=== PATIENT | male | born 1980 | race Caucasian/White ===

== ENCOUNTER 2020-04-04 18:52 | Inpatient (IN) | payer SELFPAY ==
[~2020-04-04] VITALS: Ht 175.3 cm; Wt 127.3 kg
[2020-04-04] MEDS: IV NORMAL SALINE 1000ML BAG 1,000 ML IV SCH ×3 (20:11→22:40)
[2020-04-04] MEDS ORDERED: VANCOMYCIN PER PHARMACY MC ONE (20:15)
[2020-04-04] MEDS ORDERED: MORPHINE SULFATE 2 MG/ML VIAL. IV/SQ PRN (20:15)
[2020-04-04] MEDS ORDERED: ACETAMINOPHEN 500 MG TABLET PO ONE (20:15)
[2020-04-04 20:28] LABS: BASO # 0.1 x10^3/uL (0.0-0.2); BASO % 1 % (0-3); EOS # 0.1 x10^3/uL (0.0-0.7); EOS % 1 % (0-3); HEMATOCRIT 39.6 % (39.0-53.0); HEMOGLOBIN 13.6 g/dL (13.0-17.5); LYMPH # 2.1 x10^3/uL (1.0-4.8); LYMPH % 13 % (24-48); MEAN CORPUSCULAR HEMOGLOBIN 31 pg (25-35); MEAN CORPUSCULAR HGB CONC 34 g/dL (31-37); MEAN CORPUSCULAR VOLUME 89 fL (79-100); MONO % 6 % (0-9); NEUT # 13.4 x10^3/uL (1.8-7.7); NEUT % 80 % (31-73); PLATELET COUNT 217 x10^3/uL (140-400); RED BLOOD COUNT 4.45 x10^6/uL (4.30-5.70); RED CELL DISTRIBUTION WIDTH 13.6 % (11.5-14.5); WHITE BLOOD COUNT 16.7 x10^3/uL (4.0-11.0)
[2020-04-04 20:38] LABS: CALCIUM 9.2 mg/dL (8.5-10.1); GFR 82.3; POTASSIUM 3.3 mmol/L (3.5-5.1); PROTHROMBIN TIME PATIENT 13.6 SEC (11.7-14.0)
[2020-04-04 20:44] LABS: ALBUMIN 3.5 g/dL (3.4-5.0); ALBUMIN/GLOBULIN RATIO 0.9 (1.0-1.7); TOTAL BILIRUBIN 0.3 mg/dL (0.2-1.0); TOTAL PROTEIN 7.5 g/dL (6.4-8.2)
[2020-04-04 20:55] VITALS: BP 131/88
[2020-04-04] MEDS ORDERED: PIPERACILLIN/TAZOBACTAM 4.5 GM in IV NORMAL SALINE 100ML 100 ML IV ONE (21:00)
[2020-04-04] MEDS ORDERED: VANCOMYCIN 2 GM in IV NORMAL SALINE 500ML BAG 500 ML IV ONE (21:00)
[2020-04-04 21:12] LABS: % BANDS 2 % (0-9); % LYMPHS 14 % (24-48); % MONOS 5 % (0-10); % SEGS 79 % (35-66); PLT ESTIMATE ADEQUATE (ADEQUATE)
--- NOTE | 2020-04-04 21:20 | PHYS DOC ---
Past Medical History Past Medical History: Diabetes-Type II, GERD Additional Past Medical Histor: PRE HTN Past Surgical History: Other Additional Past Surgical Histo: L KNEE Smoking Status: Current Every Day Smoker Alcohol Use: Rarely General Adult EDM: Chief Complaint: ABSCESS HPI: HPI: Patient is a 39 year old male with history of diabetes type 2, acid reflux, who presents to the ED today with an axilla abscess that began 3 days ago. Patient denies any fever, denies any drainage from the area. Review of Systems: Review of Systems: Constitutional: Denies fever or chills. [] Eyes: Denies change in visual acuity. [] HENT: Denies nasal congestion or sore throat. [] Respiratory: Denies cough or shortness of breath. [] Cardiovascular: Denies chest pain or edema. [] GI: Denies abdominal pain, nausea, vomiting, bloody stools or diarrhea. [] : Denies dysuria. [] Musculoskeletal: Denies back pain or joint pain. [] Integument: Reports right axilla abscess Neurologic: Denies headache, focal weakness or sensory changes. [] Psychiatric: Denies depression or anxiety. [] Heart Score: Risk Factors: Risk Factors: DM, Current or recent (<one month) smoker, HTN, HLP, family history of CAD, obesity. Risk Scores: Score 0 - 3: 2.5% MACE over next 6 weeks - Discharge Home Score 4 - 6: 20.3% MACE over next 6 weeks - Admit for Clinical Observation Score 7 - 10: 72.7% MACE over next 6 weeks - Early Invasive Strategies Current Medications: Current Medications Medications (Trade) Dose Ordered Sig/[facility] Start Time Stop Time Status Last Admin Dose Admin Acetaminophen (Tylenol) 1,000 mg 1X ONCE 04/04/20 20:15 04/04/20 20:20 DC 04/04/20 20:38 1,000 MG Morphine Sulfate (Morphine Sulfate) 2 mg PRN Q15MIN PRN 04/04/20 20:15 04/05/20 20:14 04/04/20 20:40 2 MG Piperacillin Sod/ Tazobactam Sod 4.5 gm/Sodium Chloride 100 ml @ 200 mls/hr 1X ONCE 04/04/20 21:00 04/04/20 21:29 04/04/20 20:46 200 MLS/HR Sodium Chloride 1,000 ml @ 2,130 mls/hr Q29M 04/04/20 20:11 04/04/20 21:11 DC Vancomycin HCl (Vanco Per Pharmacy) 1 each 1X ONCE 04/04/20 20:15 04/04/20 20:16 UNV Vancomycin HCl 2 gm/Sodium Chloride 500 ml @ 250 mls/hr 1X ONCE 04/04/20 21:00 04/04/20 22:59 04/04/20 20:47 250 MLS/HR Allergies: Allergies: Allergies Coded Allergies Type Severity Reaction Last Updated Verified erythromycin base Allergy Unknown Nausea 04/04/20 Yes Physical Exam: PE: Constitutional: Well developed, well nourished, no acute distress, non-toxic appearance. [] HENT: Normocephalic, atraumatic, bilateral external ears normal, oropharynx moist, no oral exudates, nose normal. [] Eyes: PERRLA, EOMI, conjunctiva normal, no discharge. [] Neck: Normal range of motion, no tenderness, supple, no stridor. [] Cardiovascular:Heart rate regular rhythm, no murmur [] Lungs & Thorax: Bilateral breath sounds clear to auscultation [] Abdomen: Bowel sounds normal, soft, no tenderness, no masses, no pulsatile masses. [] Skin: Warm, dry, right axilla with a palpable mass roughly 8 x 4 cm. With surrounding mild cellulitis. The abscess is firm to touch, no fluctuance. Back: No tenderness, no CVA tenderness. [] Extremities: No tenderness, no cyanosis, no clubbing, ROM intact, no edema. [] Neurologic: Alert and oriented X 3, normal motor function, normal sensory function, no focal deficits noted. [] Psychologic: Affect normal, judgement normal, mood normal. [] Current Patient Data: Labs: Laboratory Tests Test 04/04/20 20:08 White Blood Count 16.7 x10^3/uL (4.0-11.0) H Red Blood Count 4.45 x10^6/uL (4.30-5.70) Hemoglobin 13.6 g/dL (13.0-17.5) Hematocrit 39.6 % (39.0-53.0) Mean Corpuscular Volume 89 fL (79-100) Mean Corpuscular Hemoglobin 31 pg (25-35) Mean Corpuscular Hemoglobin Concent 34 g/dL (31-37) Red Cell Distribution Width 13.6 % (11.5-14.5) Platelet Count 217 x10^3/uL (140-400) Neutrophils (%) (Auto) 80 % (31-73) H Lymphocytes (%) (Auto) 13 % (24-48) L Monocytes (%) (Auto) 6 % (0-9) Eosinophils (%) (Auto) 1 % (0-3) Basophils (%) (Auto) 1 % (0-3) Neutrophils # (Auto) 13.4 x10^3/uL (1.8-7.7) H Lymphocytes # (Auto) 2.1 x10^3/uL (1.0-4.8) Monocytes # (Auto) 1.0 x10^3/uL (0.0-1.1) Eosinophils # (Auto) 0.1 x10^3/uL (0.0-0.7) Basophils # (Auto) 0.1 x10^3/uL (0.0-0.2) Segmented Neutrophils % 79 % (35-66) H Band Neutrophils % 2 % (0-9) Lymphocytes % 14 % (24-48) L Monocytes % 5 % (0-10) Platelet Estimate Adequate (ADEQUATE) Prothrombin Time 13.6 SEC (11.7-14.0) Prothrombin Time INR 1.1 (0.8-1.1) Activated Partial Thromboplast Time 36 SEC (24-38) Sodium Level 138 mmol/L (136-145) Potassium Level 3.3 mmol/L (3.5-5.1) L Chloride Level 102 mmol/L (98-107) Carbon Dioxide Level 23 mmol/L (21-32) Anion Gap 13 (6-14) Blood Urea Nitrogen 9 mg/dL (8-26) Creatinine 1.0 mg/dL (0.7-1.3) Estimated GFR (Cockcroft-Gault) 82.3 BUN/Creatinine Ratio 9 (6-20) Glucose Level 104 mg/dL (70-99) H Lactic Acid Level 0.7 mmol/L (0.4-2.0) Calcium Level 9.2 mg/dL (8.5-10.1) Total Bilirubin 0.3 mg/dL (0.2-1.0) Aspartate Amino Transferase (AST) 17 U/L (15-37) Alanine Aminotransferase (ALT) 31 U/L (16-63) Alkaline Phosphatase 73 U/L (46-116) Total Protein 7.5 g/dL (6.4-8.2) Albumin 3.5 g/dL (3.4-5.0) Albumin/Globulin Ratio 0.9 (1.0-1.7) L Procalcitonin 0.15 ng/mL (0.00-0.10) H Laboratory Tests 04/04/20 20:08 Laboratory Tests 04/04/20 20:08 Vital Signs: Vital Signs Date Time Temp Pulse Resp B/P (MAP) Pulse Ox O2 Delivery O2 Flow Rate FiO2 04/04/20 19:23 99.8 113 18 139/80 (99) 97 Room Air 99.8 EKG: EKG: [] Radiology/Procedures: Radiology/Procedures: [] Course & Med Decision Making: Course & Med Decision Making Pertinent Labs and Imaging studies reviewed. (See chart for details) This is a 39-year-old male patient presenting to the ED today with right axilla abscess that began 3 days ago. The abscess or cellulitis surrounding it, the abscess is firm, no fluctuance. Patient is running a slight temp of 99.8 with a heart rate of 113. CBC with a WBC of 16.8, CMP with no acute findings, lactic is normal, pro calcitonin 0.15. Spoke with Dr. Alves who accepted patient for admission, routine consult was placed for general surgery. N.p.o. Ultrasound of the right axilla ordered. Tristan Disclaimer: Tristan Disclaimer: This electronic medical record was generated, in whole or in part, using a voice recognition dictation system. Departure Departure Impression: Primary Impression: Abscess of axilla, right Additional Impression: Cellulitis of axilla, right Disposition: ADMITTED INPATIENT Condition: STABLE Referrals: NO PCP (PCP) Justicifation of Admission Dx: Justifications for Admission: Justification of Admission Dx: Yes Cellulitis: Cellulitis JENNYFER PADILLA BOX SORTER Apr 04, 2020 21:20
[2020-04-04] MEDS ORDERED: ONDANSETRON PF 4 MG/2 ML VIAL. IV PRN ×2 (21:45→22:00)
[2020-04-04] MEDS ORDERED: IV NORMAL SALINE 1000ML BAG 1,000 ML IV ONE (21:45)
[2020-04-04] MEDS ORDERED: MORPHINE SULFATE 4 MG/ML VIAL. IV PRN (21:45)
--- NOTE | 2020-04-04 21:56 | PDOC1 ---
History and Physical Date of Admission Date of Admission DATE: 04/04/20 TIME: 21:56 Identification/Chief Complaint Chief Complaint Right axillary pain Source Source: Patient History of Present Illness History of Present Illness Mr Christopher is a 39 yo M PMHx acid reflux who presents to the ED today with right axillary pain, swelling, redness began 3 days ago. Denies any drainage from the area. He has been washing regularly, not wearing deodorant. 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 On ROS he has had headache and fever and chills over the past day as well as some nausea and was afraid he was becoming septic. WBC 16.7, HR 113 bpm Hb 13.6, platelets 217, K 3.3. INR 1.1. Glucose 104. Lactic is normal, pro calcitonin 0.15. Started on vancomycin and zosyn. Admitted for further treatment. Past Surgical History Past Surgical History: Other (Left knee arthroscopy) Family History Family History: Diabetes, High Cholestrol, Hypertension Social History Smoke: 1 pack per day ALCOHOL: social Drugs: None Current Problem List Problem List Problems Medical Problems: (1) Abscess of axilla, right Status: Acute (2) Cellulitis of axilla, right Status: Acute Current Medications Current Medications Current Medications Sodium Chloride 1,000 ml @ 2,130 mls/hr Q29M IV ; Start 04/04/20 at 20:11; Stop 04/04/20 at 21:11; Status DC Piperacillin Sod/ Tazobactam Sod 4.5 gm/Sodium Chloride 100 ml @ 200 mls/hr 1X ONCE IV Last administered on 04/04/20at 20:46; Start 04/04/20 at 21:00; Stop 04/04/20 at 21:29; Status DC Vancomycin HCl (Vanco Per Pharmacy) 1 each 1X ONCE MC ; Start 04/04/20 at 20:15; Stop 04/04/20 at 21:47; Status DC Morphine Sulfate (Morphine Sulfate) 2 mg PRN Q15MIN PRN IV/SQ PAIN GREATER THAN 3/10 Last administered on 04/04/20at 20:40; Start 04/04/20 at 20:15; Stop at 20:14 Acetaminophen (Tylenol) 1,000 mg 1X ONCE PO Last administered on 04/04/20at 20:38; Start 04/04/20 at 20:15; Stop 04/04/20 at 20:20; Status DC Vancomycin HCl 2 gm/Sodium Chloride 500 ml @ 250 mls/hr 1X ONCE IV Last administered on 04/04/20at 20:47; Start 04/04/20 at 21:00; Stop 04/04/20 at 22:59 Ondansetron HCl (Zofran) 4 mg PRN Q8HRS PRN IV NAUSEA/VOMITING; Start 04/04/20 at 21:45; Stop 04/05/20 at 21:44 Morphine Sulfate (Morphine Sulfate) 4 mg PRN Q2HR PRN IV PAIN; Start 04/04/20 at 21:45; Stop 04/05/20 at 21:44 Sodium Chloride 1,000 ml @ 100 mls/hr 1X ONCE IV ; Start 04/04/20 at 21:45; Stop 04/05/20 at 07:44 Allergies Allergies: Coded Allergies: erythromycin base (Verified Allergy, Unknown, Nausea, 04/04/20) SEVERE ABD PAIN AND NAUSEA ROS General: YES: Chills, Night Sweats, Fatigue, Malaise; No: Appetite, Other PSYCHOLOGICAL ROS: No: Anxiety, Behavioral Disorder, Concentration difficultie, Decreased libido, Depression, Disorientation, Hallucinations, Hostility, Irritablity, Memory difficulties, Mood Swings, Obsessive thoughts, Physical abuse, Sexual abuse, Sleep disturbances, Suicidal ideation, Other Eyes: No Blurry vision, No Decreased vision, No Double vision, No Dry eyes, No Excessive tearing, No Eye Pain, No Itchy Eyes, No Loss of vision, No Photophobia, No Scotomata, No Uses contacts, No Uses glasses, No Other HEENT: No: Heacaches, Visual Changes, Hearing change, Nasal congestion, Nasal discharge, Oral lesions, Sinus pain, Sore Throat, Epistaxis, Sneezing, Snoring, Tinnitus, Vertigo, Vocal changes, Other ALLERGY AND IMMUNOLOGY: No: Hives, Insect Bite Sensitivity, Itchy/Watery Eyes, Nasal Congestion, Post Nasal Drip, Seasonal Allergies, Other Hematological and Lymphatic: No: Bleeding Problems, Blood Clots, Blood Trans fusions, Brusing, Night Sweats, Pallor, Swollen Lymph Nodes, Other ENDOCRINE: No: Breast Changes, Galactorrhea, Hair Pattern Changes, Hot Flashes, Malaise/lethargy, Mood Swings, Palpitations, Polydipsia/polyuria, Skin Changes, Temperature Intolerance, Unexpected Weight Changes, Other Breast: No New/Changing Breast Lumps, No Nipple changes, No Nipple discharge, No Other Respiratory: No: Cough, Hemoptysis, Orthopnea, Pleuritic Pain, Shortness of breath, SOB with excertion, Sputum Changes, Stridor, Tachypnea, Wheezing, Other Cardiovascular: No Chest Pain, No Palpitations, No Orthopnea, No Paroxysmal Noc. Dyspnea, No Edema, No Lt Headedness, No Other Gastrointestinal: Yes Nausea; No Vomiting, No Abdominal Pain, No Diarrhea, No Constipation, No Melena, No Hematochezia, No Other Genitourinary: No Dysuria, No Frequency, No Incontinence, No Hematuria, No Retention, No Discharge, No Urgency, No Pain, No Flank Pain, No Other, No , No , No , No , No , No , No Musculoskeletal: No Gait Disturbance, No Joint Pain, No Joint Stiffness, No Joint Swelling, No Muscle Pain, No Muscular Weakness, No Pain In:, No Swelling In:, No Other Neurological: No Behavorial Changes, No Bowel/Bladder ControlChng, No Confus ion, No Dizziness, No Gait Disturbance, No Headaches, No Impaired Coord/balance, No Memory Loss, No Numbness/Tingling, No Seizures, No Speech Problems, No Tremors, No Visual Changes, No Weakness, No Other Skin: Yes Rash, Yes Skin Lesion Changes; No Dry Skin, No Eczema, No Hair Changes, No Lumps, No Mole Changes, No M ottling, No Nail Changes, No Pruritus, No Other, No Acne Physical Exam General: Alert, Oriented X3, Cooperative, mild distress HEENT: Atraumatic, PERRLA, EOMI, Mucous membr. moist/pink Lungs: Clear to auscultation, Normal air movement Heart: S1S2, RRR, no thrills, no rubs, no gallops, no murmurs Abdomen: Normal bowel sounds, Soft, No tenderness, No hepatosplenomegaly, No masses Extremities: No clubbing, No cyanosis, No edema, Normal pulses, No tenderness/swelling Skin: No breakdown, No significant lesion, Other (Large [id number] warm red right axilla with hard mass 4cm x6cm in center, painful to palpation) Neuro: Normal gait, Normal speech, Strength at 5/5 X4 ext, Normal tone, Sensation intact, Cranial nerves 3-12 NL, Reflexes 2+ Psych/Mental Status: Mental status NL, Mood NL Vitals Vitals Vital Signs Date Time Temp Pulse Resp B/P (MAP) Pulse Ox O2 Delivery O2 Flow Rate FiO2 04/04/20 19:23 99.8 113 18 139/80 (99) 97 Room Air 99.8 Labs Labs Laboratory Tests Test 04/04/20 20:08 White Blood Count 16.7 x10^3/uL (4.0-11.0) Red Blood Count 4.45 x10^6/uL (4.30-5.70) Hemoglobin 13.6 g/dL (13.0-17.5) Hematocrit 39.6 % (39.0-53.0) Mean Corpuscular Volume 89 fL (79-100) Mean Corpuscular Hemoglobin 31 pg (25-35) Mean Corpuscular Hemoglobin Concent 34 g/dL (31-37) Red Cell Distribution Width 13.6 % (11.5-14.5) Platelet Count 217 x10^3/uL (140-400) Neutrophils (%) (Auto) 80 % (31-73) Lymphocytes (%) (Auto) 13 % (24-48) Monocytes (%) (Auto) 6 % (0-9) Eosinophils (%) (Auto) 1 % (0-3) Basophils (%) (Auto) 1 % (0-3) Neutrophils # (Auto) 13.4 x10^3/uL (1.8-7.7) Lymphocytes # (Auto) 2.1 x10^3/uL (1.0-4.8) Monocytes # (Auto) 1.0 x10^3/uL (0.0-1.1) Eosinophils # (Auto) 0.1 x10^3/uL (0.0-0.7) Basophils # (Auto) 0.1 x10^3/uL (0.0-0.2) Segmented Neutrophils % 79 % (35-66) Band Neutrophils % 2 % (0-9) Lymphocytes % 14 % (24-48) Monocytes % 5 % (0-10) Platelet Estimate Adequate (ADEQUATE) Prothrombin Time 13.6 SEC (11.7-14.0) Prothromb Time International Ratio 1.1 (0.8-1.1) Activated Partial Thromboplast Time 36 SEC (24-38) Sodium Level 138 mmol/L (136-145) Potassium Level 3.3 mmol/L (3.5-5.1) Chloride Level 102 mmol/L (98-107) Carbon Dioxide Level 23 mmol/L (21-32) Anion Gap 13 (6-14) Blood Urea Nitrogen 9 mg/dL (8-26) Creatinine 1.0 mg/dL (0.7-1.3) Estimated GFR (Cockcroft-Gault) 82.3 BUN/Creatinine Ratio 9 (6-20) Glucose Level 104 mg/dL (70-99) Lactic Acid Level 0.7 mmol/L (0.4-2.0) Calcium Level 9.2 mg/dL (8.5-10.1) Total Bilirubin 0.3 mg/dL (0.2-1.0) Aspartate Amino Transf (AST/SGOT) 17 U/L (15-37) Alanine Aminotransferase (ALT/SGPT) 31 U/L (16-63) Alkaline Phosphatase 73 U/L (46-116) Total Protein 7.5 g/dL (6.4-8.2) Albumin 3.5 g/dL (3.4-5.0) Albumin/Globulin Ratio 0.9 (1.0-1.7) Procalcitonin 0.15 ng/mL (0.00-0.10) Laboratory Tests Test 04/04/20 20:08 White Blood Count 16.7 x10^3/uL (4.0-11.0) Red Blood Count 4.45 x10^6/uL (4.30-5.70) Hemoglobin 13.6 g/dL (13.0-17.5) Hematocrit 39.6 % (39.0-53.0) Mean Corpuscular Volume 89 fL (79-100) Mean Corpuscular Hemoglobin 31 pg (25-35) Mean Corpuscular Hemoglobin Concent 34 g/dL (31-37) Red Cell Distribution Width 13.6 % (11.5-14.5) Platelet Count 217 x10^3/uL (140-400) Neutrophils (%) (Auto) 80 % (31-73) Lymphocytes (%) (Auto) 13 % (24-48) Monocytes (%) (Auto) 6 % (0-9) Eosinophils (%) (Auto) 1 % (0-3) Basophils (%) (Auto) 1 % (0-3) Neutrophils # (Auto) 13.4 x10^3/uL (1.8-7.7) Lymphocytes # (Auto) 2.1 x10^3/uL (1.0-4.8) Monocytes # (Auto) 1.0 x10^3/uL (0.0-1.1) Eosinophils # (Auto) 0.1 x10^3/uL (0.0-0.7) Basophils # (Auto) 0.1 x10^3/uL (0.0-0.2) Segmented Neutrophils % 79 % (35-66) Band Neutrophils % 2 % (0-9) Lymphocytes % 14 % (24-48) Monocytes % 5 % (0-10) Platelet Estimate Adequate (ADEQUATE) Prothrombin Time 13.6 SEC (11.7-14.0) Prothromb Time International Ratio 1.1 (0.8-1.1) Activated Partial Thromboplast Time 36 SEC (24-38) Sodium Level 138 mmol/L (136-145) Potassium Level 3.3 mmol/L (3.5-5.1) Chloride Level 102 mmol/L (98-107) Carbon Dioxide Level 23 mmol/L (21-32) Anion Gap 13 (6-14) Blood Urea Nitrogen 9 mg/dL (8-26) Creatinine 1.0 mg/dL (0.7-1.3) Estimated GFR (Cockcroft-Gault) 82.3 BUN/Creatinine Ratio 9 (6-20) Glucose Level 104 mg/dL (70-99) Lactic Acid Level 0.7 mmol/L (0.4-2.0) Calcium Level 9.2 mg/dL (8.5-10.1) Total Bilirubin 0.3 mg/dL (0.2-1.0) Aspartate Amino Transf (AST/SGOT) 17 U/L (15-37) Alanine Aminotransferase (ALT/SGPT) 31 U/L (16-63) Alkaline Phosphatase 73 U/L (46-116) Total Protein 7.5 g/dL (6.4-8.2) Albumin 3.5 g/dL (3.4-5.0) Albumin/Globulin Ratio 0.9 (1.0-1.7) Procalcitonin 0.15 ng/mL (0.00-0.10) Images Images US right axilla - Imaging of the right axilla performed. No discrete fluid collection is identified. There is soft tissue edema noted throughout the right axilla. IMPRESSION: No discrete fluid collection. Edema is noted interdigitating within the fat of the right axilla. VTE Prophylaxis Ordered VTE Prophylaxis Devices: Yes VTE Pharmacological Prophylaxi: No Assessment/Plan Assessment/Plan A/P: Right Axillary abscess - empiric vancomycin and zosyn, consult general surgery Right axillary cellulitis - empiric vancomycin and zosyn Sepsis - secondary to above with leukocytosis and tachycardia, given the size, extent and sepsis outpatient therapy is inappropriate. Will cont empiric vancomycin and zosyn, consult general surgery Hyperglycemia - will check A1c, likely has diabetes based on his home glucometer reading > 500mg/dL fasting Obesity - counseled on diet, exercise, weight loss Smoker - counseled, offered nicotine patch FEN - ADA diet PPX - ambulatory, low risk FULL CODE Dispo - inpatient for above Justicifation of Admission Dx: Justifications for Admission: Justification of Admission Dx: Yes Sepsis: Parenteral Antimicrobial ANNALISA FISHER MD Apr 04, 2020 21:56
[2020-04-04] MEDS ORDERED: KETOROLAC 30 MG/ML VIAL. IVP PRN (22:00)
--- NOTE | 2020-04-04 22:19 | RAD ---
Exam: Ultrasound right extremity nonvascular soft tissue Indication: Question right axilla abscess Technique: Real-time grayscale and color Doppler images of the right axilla were obtained by the department air duct mechanic. Comparisons: None FINDINGS: Imaging of the right axilla performed. No discrete fluid collection is identified. There is soft tissue edema noted throughout the right axilla. IMPRESSION: No discrete fluid collection. Edema is noted interdigitating within the fat of the right axilla. Electronically signed by: Dalia Baez MD (04/04/2020 10:16 PM) [id number]
[2020-04-05] MEDS ORDERED: DEXTROSE 50% 25 GM / 50ML DISP.SYRIN. IV PRN (00:30)
[2020-04-05] MEDS ORDERED: FAMOTIDINE 20 MG TABLET. PO PRN (00:30)
[2020-04-05] MEDS ORDERED: LIDO:MAALOX 1:1 20 ML SINGLE DOSE. PO PRN (00:30)
[2020-04-05 02:57] VITALS: BP 115/61
[2020-04-05 05:26] LABS: BASO % 0 % (0-3); EOS # 0.2 x10^3/uL (0.0-0.7); EOS % 2 % (0-3); HEMATOCRIT 38.5 % (39.0-53.0); HEMOGLOBIN 12.8 g/dL (13.0-17.5); LYMPH # 1.9 x10^3/uL (1.0-4.8); LYMPH % 15 % (24-48); MEAN CORPUSCULAR HEMOGLOBIN 30 pg (25-35); MEAN CORPUSCULAR HGB CONC 33 g/dL (31-37); MEAN CORPUSCULAR VOLUME 91 fL (79-100); MONO % 8 % (0-9); NEUT # 9.6 x10^3/uL (1.8-7.7); NEUT % 75 % (31-73); PLATELET COUNT 203 x10^3/uL (140-400); RED BLOOD COUNT 4.25 x10^6/uL (4.30-5.70); RED CELL DISTRIBUTION WIDTH 13.6 % (11.5-14.5); WHITE BLOOD COUNT 12.8 x10^3/uL (4.0-11.0)
[2020-04-05 05:56] LABS: CALCIUM 8.5 mg/dL (8.5-10.1); CREATININE 1.1 mg/dL (0.7-1.3); GFR 73.8; POTASSIUM 3.7 mmol/L (3.5-5.1)
[2020-04-05 07:00] VITALS: BP 123/64
[2020-04-05] MEDS: INSULIN LISPRO 300 UNITS/3 ML VIAL. SQ SCH ×3 (08:00→16:37)
[2020-04-05 11:30] VITALS: BP 103/69
[2020-04-05] MEDS ORDERED: VANCOMYCIN PER PHARMACY MC PRN (11:45)
--- NOTE | 2020-04-05 11:55 | PDOC ---
PROGRESS NOTES Chief Complaint Chief Complaint Right Axillary abscess - empiric vancomycin and zosyn, consult general surgery Right axillary cellulitis - empiric vancomycin and zosyn Sepsis - secondary to above with leukocytosis and tachycardia, given the size, extent and sepsis outpatient therapy is inappropriate. Will cont empiric van comycin and zosyn, consult general surgery Hyperglycemia - will check A1c, likely has diabetes based on his home glucometer reading > 500mg/dL fasting Obesity - counseled on diet, exercise, weight loss Smoker - counseled, offered nicotine patch History of Present Illness History of Present Illness US showed no fluid, but area is very swollen, 2 cm of induration along about 6 cm lateral side will continue vanco, Vitals Vitals Vital Signs Date Time Temp Pulse Resp B/P (MAP) Pulse Ox O2 Delivery O2 Flow Rate FiO2 04/05/20 08:00 Room Air 04/05/20 07:00 98.0 82 16 123/64 (83) 94 98.0 Physical Exam General: Alert, Oriented X3, Cooperative, No acute distress Heart: Regular rate Abdomen: Normal bowel sounds, Soft, No tenderness, No hepatosplenomegaly, No masses Extremities: No clubbing, No cyanosis, No edema, Normal pulses, No tenderness/swelling Skin: No breakdown, No significant lesion, Other (Large [id number] warm red right axilla with hard mass 4cm x6cm in center, painful to palpation) Labs LABS Laboratory Tests Test 04/04/20 20:08 04/05/20 04:34 04/05/20 08:29 04/05/20 10:45 White Blood Count 16.7 x10^3/uL (4.0-11.0) 12.8 x10^3/uL (4.0-11.0) Red Blood Count 4.45 x10^6/uL (4.30-5.70) 4.25 x10^6/uL (4.30-5.70) Hemoglobin 13.6 g/dL (13.0-17.5) 12.8 g/dL (13.0-17.5) Hematocrit 39.6 % (39.0-53.0) 38.5 % (39.0-53.0) Mean Corpuscular Volume 89 fL (79-100) 91 fL (79-100) Mean Corpuscular Hemoglobin 31 pg (25-35) 30 pg (25-35) Mean Corpuscular Hemoglobin Concent 34 g/dL (31-37) 33 g/dL (31-37) Red Cell Distribution Width 13.6 % (11.5-14.5) 13.6 % (11.5-14.5) Platelet Count 217 x10^3/uL (140-400) 203 x10^3/uL (140-400) Neutrophils (%) (Auto) 80 % (31-73) 75 % (31-73) Lymphocytes (%) (Auto) 13 % (24-48) 15 % (24-48) Monocytes (%) (Auto) 6 % (0-9) 8 % (0-9) Eosinophils (%) (Auto) 1 % (0-3) 2 % (0-3) Basophils (%) (Auto) 1 % (0-3) 0 % (0-3) Neutrophils # (Auto) 13.4 x10^3/uL (1.8-7.7) 9.6 x10^3/uL (1.8-7.7) Lymphocytes # (Auto) 2.1 x10^3/uL (1.0-4.8) 1.9 x10^3/uL (1.0-4.8) Monocytes # (Auto) 1.0 x10^3/uL (0.0-1.1) 1.0 x10^3/uL (0.0-1.1) Eosinophils # (Auto) 0.1 x10^3/uL (0.0-0.7) 0.2 x10^3/uL (0.0-0.7) Basophils # (Auto) 0.1 x10^3/uL (0.0-0.2) 0.0 x10^3/uL (0.0-0.2) Segmented Neutrophils % 79 % (35-66) Band Neutrophils % 2 % (0-9) Lymphocytes % 14 % (24-48) Monocytes % 5 % (0-10) Platelet Estimate Adequate (ADEQUATE) Prothrombin Time 13.6 SEC (11.7-14.0) Prothromb Time International Ratio 1.1 (0.8-1.1) Activated Partial Thromboplast Time 36 SEC (24-38) Sodium Level 138 mmol/L (136-145) 140 mmol/L (136-145) Potassium Level 3.3 mmol/L (3.5-5.1) 3.7 mmol/L (3.5-5.1) Chloride Level 102 mmol/L (98-107) 105 mmol/L (98-107) Carbon Dioxide Level 23 mmol/L (21-32) 25 mmol/L (21-32) Anion Gap 13 (6-14) 10 (6-14) Blood Urea Nitrogen 9 mg/dL (8-26) 10 mg/dL (8-26) Creatinine 1.0 mg/dL (0.7-1.3) 1.1 mg/dL (0.7-1.3) Estimated GFR (Cockcroft-Gault) 82.3 73.8 BUN/Creatinine Ratio 9 (6-20) Glucose Level 104 mg/dL (70-99) 105 mg/dL (70-99) Lactic Acid Level 0.7 mmol/L (0.4-2.0) Calcium Level 9.2 mg/dL (8.5-10.1) 8.5 mg/dL (8.5-10.1) Total Bilirubin 0.3 mg/dL (0.2-1.0) Aspartate Amino Transf (AST/SGOT) 17 U/L (15-37) Alanine Aminotransferase (ALT/SGPT) 31 U/L (16-63) Alkaline Phosphatase 73 U/L (46-116) Total Protein 7.5 g/dL (6.4-8.2) Albumin 3.5 g/dL (3.4-5.0) Albumin/Globulin Ratio 0.9 (1.0-1.7) Procalcitonin 0.15 ng/mL (0.00-0.10) Magnesium Level 2.0 mg/dL (1.8-2.4) Glucose (Fingerstick) 113 mg/dL (70-99) 99 mg/dL (70-99) Assessment and Plan Assessmemt and Plan Problems Medical Problems: (1) Abscess of axilla, right Status: Acute (2) Cellulitis of axilla, right Status: Acute Comment Review of Relevant I have reviewed the following items fabian (where applicable) has been applied. Labs Laboratory Tests Test 04/04/20 20:08 04/05/20 04:34 04/05/20 08:29 04/05/20 10:45 White Blood Count 16.7 x10^3/uL (4.0-11.0) 12.8 x10^3/uL (4.0-11.0) Red Blood Count 4.45 x10^6/uL (4.30-5.70) 4.25 x10^6/uL (4.30-5.70) Hemoglobin 13.6 g/dL (13.0-17.5) 12.8 g/dL (13.0-17.5) Hematocrit 39.6 % (39.0-53.0) 38.5 % (39.0-53.0) Mean Corpuscular Volume 89 fL (79-100) 91 fL (79-100) Mean Corpuscular Hemoglobin 31 pg (25-35) 30 pg (25-35) Mean Corpuscular Hemoglobin Concent 34 g/dL (31-37) 33 g/dL (31-37) Red Cell Distribution Width 13.6 % (11.5-14.5) 13.6 % (11.5-14.5) Platelet Count 217 x10^3/uL (140-400) 203 x10^3/uL (140-400) Neutrophils (%) (Auto) 80 % (31-73) 75 % (31-73) Lymphocytes (%) (Auto) 13 % (24-48) 15 % (24-48) Monocytes (%) (Auto) 6 % (0-9) 8 % (0-9) Eosinophils (%) (Auto) 1 % (0-3) 2 % (0-3) Basophils (%) (Auto) 1 % (0-3) 0 % (0-3) Neutrophils # (Auto) 13.4 x10^3/uL (1.8-7.7) 9.6 x10^3/uL (1.8-7.7) Lymphocytes # (Auto) 2.1 x10^3/uL (1.0-4.8) 1.9 x10^3/uL (1.0-4.8) Monocytes # (Auto) 1.0 x10^3/uL (0.0-1.1) 1.0 x10^3/uL (0.0-1.1) Eosinophils # (Auto) 0.1 x10^3/uL (0.0-0.7) 0.2 x10^3/uL (0.0-0.7) Basophils # (Auto) 0.1 x10^3/uL (0.0-0.2) 0.0 x10^3/uL (0.0-0.2) Segmented Neutrophils % 79 % (35-66) Band Neutrophils % 2 % (0-9) Lymphocytes % 14 % (24-48) Monocytes % 5 % (0-10) Platelet Estimate Adequate (ADEQUATE) Prothrombin Time 13.6 SEC (11.7-14.0) Prothromb Time International Ratio 1.1 (0.8-1.1) Activated Partial Thromboplast Time 36 SEC (24-38) Sodium Level 138 mmol/L (136-145) 140 mmol/L (136-145) Potassium Level 3.3 mmol/L (3.5-5.1) 3.7 mmol/L (3.5-5.1) Chloride Level 102 mmol/L (98-107) 105 mmol/L (98-107) Carbon Dioxide Level 23 mmol/L (21-32) 25 mmol/L (21-32) Anion Gap 13 (6-14) 10 (6-14) Blood Urea Nitrogen 9 mg/dL (8-26) 10 mg/dL (8-26) Creatinine 1.0 mg/dL (0.7-1.3) 1.1 mg/dL (0.7-1.3) Estimated GFR (Cockcroft-Gault) 82.3 73.8 BUN/Creatinine Ratio 9 (6-20) Glucose Level 104 mg/dL (70-99) 105 mg/dL (70-99) Lactic Acid Level 0.7 mmol/L (0.4-2.0) Calcium Level 9.2 mg/dL (8.5-10.1) 8.5 mg/dL (8.5-10.1) Total Bilirubin 0.3 mg/dL (0.2-1.0) Aspartate Amino Transf (AST/SGOT) 17 U/L (15-37) Alanine Aminotransferase (ALT/SGPT) 31 U/L (16-63) Alkaline Phosphatase 73 U/L (46-116) Total Protein 7.5 g/dL (6.4-8.2) Albumin 3.5 g/dL (3.4-5.0) Albumin/Globulin Ratio 0.9 (1.0-1.7) Procalcitonin 0.15 ng/mL (0.00-0.10) Magnesium Level 2.0 mg/dL (1.8-2.4) Glucose (Fingerstick) 113 mg/dL (70-99) 99 mg/dL (70-99) Laboratory Tests Test 04/04/20 20:08 04/05/20 04:34 04/05/20 08:29 04/05/20 10:45 White Blood Count 16.7 x10^3/uL (4.0-11.0) 12.8 x10^3/uL (4.0-11.0) Red Blood Count 4.45 x10^6/uL (4.30-5.70) 4.25 x10^6/uL (4.30-5.70) Hemoglobin 13.6 g/dL (13.0-17.5) 12.8 g/dL (13.0-17.5) Hematocrit 39.6 % (39.0-53.0) 38.5 % (39.0-53.0) Mean Corpuscular Volume 89 fL (79-100) 91 fL (79-100) Mean Corpuscular Hemoglobin 31 pg (25-35) 30 pg (25-35) Mean Corpuscular Hemoglobin Concent 34 g/dL (31-37) 33 g/dL (31-37) Red Cell Distribution Width 13.6 % (11.5-14.5) 13.6 % (11.5-14.5) Platelet Count 217 x10^3/uL (140-400) 203 x10^3/uL (140-400) Neutrophils (%) (Auto) 80 % (31-73) 75 % (31-73) Lymphocytes (%) (Auto) 13 % (24-48) 15 % (24-48) Monocytes (%) (Auto) 6 % (0-9) 8 % (0-9) Eosinophils (%) (Auto) 1 % (0-3) 2 % (0-3) Basophils (%) (Auto) 1 % (0-3) 0 % (0-3) Neutrophils # (Auto) 13.4 x10^3/uL (1.8-7.7) 9.6 x10^3/uL (1.8-7.7) Lymphocytes # (Auto) 2.1 x10^3/uL (1.0-4.8) 1.9 x10^3/uL (1.0-4.8) Monocytes # (Auto) 1.0 x10^3/uL (0.0-1.1) 1.0 x10^3/uL (0.0-1.1) Eosinophils # (Auto) 0.1 x10^3/uL (0.0-0.7) 0.2 x10^3/uL (0.0-0.7) Basophils # (Auto) 0.1 x10^3/uL (0.0-0.2) 0.0 x10^3/uL (0.0-0.2) Segmented Neutrophils % 79 % (35-66) Band Neutrophils % 2 % (0-9) Lymphocytes % 14 % (24-48) Monocytes % 5 % (0-10) Platelet Estimate Adequate (ADEQUATE) Prothrombin Time 13.6 SEC (11.7-14.0) Prothromb Time International Ratio 1.1 (0.8-1.1) Activated Partial Thromboplast Time 36 SEC (24-38) Sodium Level 138 mmol/L (136-145) 140 mmol/L (136-145) Potassium Level 3.3 mmol/L (3.5-5.1) 3.7 mmol/L (3.5-5.1) Chloride Level 102 mmol/L (98-107) 105 mmol/L (98-107) Carbon Dioxide Level 23 mmol/L (21-32) 25 mmol/L (21-32) Anion Gap 13 (6-14) 10 (6-14) Blood Urea Nitrogen 9 mg/dL (8-26) 10 mg/dL (8-26) Creatinine 1.0 mg/dL (0.7-1.3) 1.1 mg/dL (0.7-1.3) Estimated GFR (Cockcroft-Gault) 82.3 73.8 BUN/Creatinine Ratio 9 (6-20) Glucose Level 104 mg/dL (70-99) 105 mg/dL (70-99) Lactic Acid Level 0.7 mmol/L (0.4-2.0) Calcium Level 9.2 mg/dL (8.5-10.1) 8.5 mg/dL (8.5-10.1) Total Bilirubin 0.3 mg/dL (0.2-1.0) Aspartate Amino Transf (AST/SGOT) 17 U/L (15-37) Alanine Aminotransferase (ALT/SGPT) 31 U/L (16-63) Alkaline Phosphatase 73 U/L (46-116) Total Protein 7.5 g/dL (6.4-8.2) Albumin 3.5 g/dL (3.4-5.0) Albumin/Globulin Ratio 0.9 (1.0-1.7) Procalcitonin 0.15 ng/mL (0.00-0.10) Magnesium Level 2.0 mg/dL (1.8-2.4) Glucose (Fingerstick) 113 mg/dL (70-99) 99 mg/dL (70-99) Medications Current Medications Sodium Chloride 1,000 ml @ 2,130 mls/hr Q29M IV ; Start 04/04/20 at 20:11; Stop 04/04/20 at 21:11; Status DC Piperacillin Sod/ Tazobactam Sod 4.5 gm/Sodium Chloride 100 ml @ 200 mls/hr 1X ONCE IV Last administered on 04/04/20at 20:46; Start 04/04/20 at 21:00; Stop 04/04/20 at 21:29; Status DC Vancomycin HCl (Vanco Per Pharmacy) 1 each 1X ONCE MC ; Start 04/04/20 at 20:15; Stop 04/04/20 at 21:47; Status DC Morphine Sulfate (Morphine Sulfate) 2 mg PRN Q15MIN PRN IV/SQ PAIN GREATER THAN 3/10 Last administered on 04/04/20at 20:40; Start 04/04/20 at 20:15; Stop 04/05/20 at 20:14 Acetaminophen (Tylenol) 1,000 mg 1X ONCE PO Last administered on 04/04/20at 20:38; Start 04/04/20 at 20:15; Stop 04/04/20 at 20:20; Status DC Vancomycin HCl 2 gm/Sodium Chloride 500 ml @ 250 mls/hr 1X ONCE IV Last administered on 04/04/20at 20:47; Start 04/04/20 at 21:00; Stop 04/04/20 at 22:59; Status DC Ondansetron HCl (Zofran) 4 mg PRN Q8HRS PRN IV NAUSEA/VOMITING; Start 04/04/20 at 21:45; Stop 04/04/20 at 21:56; Status DC Morphine Sulfate (Morphine Sulfate) 4 mg PRN Q2HR PRN IV PAIN; Start 04/04/20 at 21:45; Stop 04/05/20 at 11:19; Status DC Sodium Chloride 1,000 ml @ 100 mls/hr 1X ONCE IV Last administered on 04/04/20at 22:40; Start 04/04/20 at 21:45; Stop 04/05/20 at 04:15; Status DC Ondansetron HCl (Zofran) 4 mg PRN Q4HRS PRN IV NAUSEA/VOMITING; Start 04/04/20 at 22:00 Ketorolac Tromethamine (Toradol 30mg Vial) 30 mg PRN Q6HRS PRN IVP SEVERE PAIN 7-10 Last administered on 04/05/20at 06:20; Start 04/04/20 at 22:00 Famotidine (Pepcid) 20 mg PRN BID PRN PO GERD; Start 04/05/20 at 00:30 Multi-Ingredient Mouthwash/Gargle (Gi Cocktail) 20 ml PRN QID PRN PO CHEST PAIN; Start 04/05/20 at 00:30 Insulin Human Lispro (HumaLOG) 0-7 UNITS TIDWMEALS SQ ; Start 04/05/20 at 08:00 Dextrose (Dextrose 50%-Water Syringe) 12.5 gm PRN Q15MIN PRN IV SEE COMMENTS; Start 04/05/20 at 00:30 Vancomycin HCl (Vanco Per Pharmacy) 1 each PRN DAILY PRN MC SEE COMMENTS; Start 04/05/20 at 11:45 Vitals/I & O Vital Sign - Last 24 Hours 04/04/20 04/04/20 04/04/20 04/05/20 19:23 20:55 22:40 02:57 Temp 99.8 98.3 98.0 99.8 98.3 98.0 Pulse 113 93 81 Resp 18 20 20 B/P (MAP) 139/80 (99) 131/88 (102) 115/61 (79) Pulse Ox 97 96 97 O2 Delivery Room Air Room Air Room Air Room Air 04/05/20 04/05/20 07:00 08:00 Temp 98.0 98.0 Pulse 82 Resp 16 B/P (MAP) 123/64 (83) Pulse Ox 94 O2 Delivery Room Air Room Air Intake and Output 04/04/20 04/04/20 04/05/20 15:00 23:00 07:00 Intake Total 2520 ml Balance 2520 ml NEO MENDOZA MD Apr 05, 2020 11:55
--- NOTE | 2020-04-05 12:09 | PDOC2 ---
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 Does report some improvement since abx started Small boils in past, but nothing like this No drainage Has felt run down last few days, however denies fevers Past Medical History Cardiovascular: HTN GI: Diverticulosis Endocrine: Diabetes Past Surgical History Past Surgical History: Other (Left knee arthroscopy) Family History Family History: Diabetes, High Cholestrol, Hypertension Social History 1 pack per day ALCOHOL: social Drugs: None Current Problem List Problem List Problems Medical Problems: (1) Abscess of axilla, right Status: Acute (2) Cellulitis of axilla, right Status: Acute Current Medications Current Medications Current Medications Sodium Chloride 1,000 ml @ 2,130 mls/hr Q29M IV ; Start 04/04/20 at 20:11; Stop 04/04/20 at 21:11; Status DC Piperacillin Sod/ Tazobactam Sod 4.5 gm/Sodium Chloride 100 ml @ 200 mls/hr 1X ONCE IV Last administered on 04/04/20at 20:46; Start 04/04/20 at 21:00; Stop 04/04/20 at 21:29; Status DC Vancomycin HCl (Vanco Per Pharmacy) 1 each 1X ONCE MC ; Start 04/04/20 at 20:15; Stop 04/04/20 at 21:47; Status DC Morphine Sulfate (Morphine Sulfate) 2 mg PRN Q15MIN PRN IV/SQ PAIN GREATER THAN 3/10 Last administered on 04/04/20at 20:40; Start 04/04/20 at 20:15; Stop 04/05/20 at 20:14 Acetaminophen (Tylenol) 1,000 mg 1X ONCE PO Last administered on 04/04/20at 20:38; Start 04/04/20 at 20:15; Stop 04/04/20 at 20:20; Status DC Vancomycin HCl 2 gm/Sodium Chloride 500 ml @ 250 mls/hr 1X ONCE IV Last administered on 04/04/20at 20:47; Start 04/04/20 at 21:00; Stop 04/04/20 at 22:59; Status DC Ondansetron HCl (Zofran) 4 mg PRN Q8HRS PRN IV NAUSEA/VOMITING; Start 04/04/20 at 21:45; Stop 04/04/20 at 21:56; Status DC Morphine Sulfate (Morphine Sulfate) 4 mg PRN Q2HR PRN IV PAIN; Start 04/04/20 at 21:45; Stop 04/05/20 at 11:19; Status DC Sodium Chloride 1,000 ml @ 100 mls/hr 1X ONCE IV Last administered on 04/04/20at 22:40; Start 04/04/20 at 21:45; Stop 04/05/20 at 04:15; Status DC Ondansetron HCl (Zofran) 4 mg PRN Q4HRS PRN IV NAUSEA/VOMITING; Start 04/04/20 at 22:00 Ketorolac Tromethamine (Toradol 30mg Vial) 30 mg PRN Q6HRS PRN IVP SEVERE PAIN 7-10 Last administered on 04/05/20at 06:20; Start 04/04/20 at 22:00 Famotidine (Pepcid) 20 mg PRN BID PRN PO GERD; Start 04/05/20 at 00:30 Multi-Ingredient Mouthwash/Gargle (Gi Cocktail) 20 ml PRN QID PRN PO CHEST PAIN; Start 04/05/20 at 00:30 Insulin Human Lispro (HumaLOG) 0-7 UNITS TIDWMEALS SQ ; Start 04/05/20 at 08:00 Dextrose (Dextrose 50%-Water Syringe) 12.5 gm PRN Q15MIN PRN IV SEE COMMENTS; Start 04/05/20 at 00:30 Vancomycin HCl (Vanco Per Pharmacy) 1 each PRN DAILY PRN MC SEE COMMENTS; Start 04/05/20 at 11:45 Vancomycin HCl 2 gm/Sodium Chloride 500 ml @ 250 mls/hr 1X ONCE IV ; Start 04/05/20 at 13:00; Stop 04/05/20 at 14:59 Allergies Allergies: Coded Allergies: erythromycin base (Verified Adverse Reaction, Unknown, Nausea, 04/05/20) SEVERE ABD PAIN AND NAUSEA ROS General: YES: Fatigue, Other (no fevers ) PSYCHOLOGICAL ROS: No: Anxiety, Depression Eyes: No Blurry vision, No Double vision HEENT: No: Heacaches, Sore Throat Hematological and Lymphatic: No: Bleeding Problems, Blood Clots Respiratory: No: Cough, Shortness of breath Cardiovascular: No Chest Pain, No Palpitations Gastrointestinal: No Nausea, No Vomiting Genitourinary: No Dysuria, No Incontinence Musculoskeletal: Yes Other (see hpi) Neurological: No Headaches, No Numbness/Tingling Physical Exam General: Alert, Oriented X3, Cooperative HEENT: Atraumatic, PERRLA Lungs: Clear to auscultation, Normal air movement Heart: Regular rate, Normal S1, Normal S2 Abdomen: Soft, No tenderness Extremities: Other (RUE with large palpable mass to right axilla, tender, no fluctunance, some swelling and erythema extending to arm, no drainage) Neuro: Normal gait, Normal speech Psych/Mental Status: Mental status NL, Mood NL MUSCULOSKELETAL: No deformity, No swelling Vitals VITALS Vital Signs Date Time Temp Pulse Resp B/P (MAP) Pulse Ox O2 Delivery O2 Flow Rate FiO2 04/05/20 11:30 98.4 85 16 103/69 (80) 96 Room Air 98.4 Labs Labs Laboratory Tests Test 04/04/20 20:08 04/05/20 04:34 04/05/20 08:29 04/05/20 10:45 White Blood Count 16.7 x10^3/uL (4.0-11.0) 12.8 x10^3/uL (4.0-11.0) Red Blood Count 4.45 x10^6/uL (4.30-5.70) 4.25 x10^6/uL (4.30-5.70) Hemoglobin 13.6 g/dL (13.0-17.5) 12.8 g/dL (13.0-17.5) Hematocrit 39.6 % (39.0-53.0) 38.5 % (39.0-53.0) Mean Corpuscular Volume 89 fL (79-100) 91 fL (79-100) Mean Corpuscular Hemoglobin 31 pg (25-35) 30 pg (25-35) Mean Corpuscular Hemoglobin Concent 34 g/dL (31-37) 33 g/dL (31-37) Red Cell Distribution Width 13.6 % (11.5-14.5) 13.6 % (11.5-14.5) Platelet Count 217 x10^3/uL (140-400) 203 x10^3/uL (140-400) Neutrophils (%) (Auto) 80 % (31-73) 75 % (31-73) Lymphocytes (%) (Auto) 13 % (24-48) 15 % (24-48) Monocytes (%) (Auto) 6 % (0-9) 8 % (0-9) Eosinophils (%) (Auto) 1 % (0-3) 2 % (0-3) Basophils (%) (Auto) 1 % (0-3) 0 % (0-3) Neutrophils # (Auto) 13.4 x10^3/uL (1.8-7.7) 9.6 x10^3/uL (1.8-7.7) Lymphocytes # (Auto) 2.1 x10^3/uL (1.0-4.8) 1.9 x10^3/uL (1.0-4.8) Monocytes # (Auto) 1.0 x10^3/uL (0.0-1.1) 1.0 x10^3/uL (0.0-1.1) Eosinophils # (Auto) 0.1 x10^3/uL (0.0-0.7) 0.2 x10^3/uL (0.0-0.7) Basophils # (Auto) 0.1 x10^3/uL (0.0-0.2) 0.0 x10^3/uL (0.0-0.2) Segmented Neutrophils % 79 % (35-66) Band Neutrophils % 2 % (0-9) Lymphocytes % 14 % (24-48) Monocytes % 5 % (0-10) Platelet Estimate Adequate (ADEQUATE) Prothrombin Time 13.6 SEC (11.7-14.0) Prothromb Time International Ratio 1.1 (0.8-1.1) Activated Partial Thromboplast Time 36 SEC (24-38) Sodium Level 138 mmol/L (136-145) 140 mmol/L (136-145) Potassium Level 3.3 mmol/L (3.5-5.1) 3.7 mmol/L (3.5-5.1) Chloride Level 102 mmol/L (98-107) 105 mmol/L (98-107) Carbon Dioxide Level 23 mmol/L (21-32) 25 mmol/L (21-32) Anion Gap 13 (6-14) 10 (6-14) Blood Urea Nitrogen 9 mg/dL (8-26) 10 mg/dL (8-26) Creatinine 1.0 mg/dL (0.7-1.3) 1.1 mg/dL (0.7-1.3) Estimated GFR (Cockcroft-Gault) 82.3 73.8 BUN/Creatinine Ratio 9 (6-20) Glucose Level 104 mg/dL (70-99) 105 mg/dL (70-99) Lactic Acid Level 0.7 mmol/L (0.4-2.0) Calcium Level 9.2 mg/dL (8.5-10.1) 8.5 mg/dL (8.5-10.1) Total Bilirubin 0.3 mg/dL (0.2-1.0) Aspartate Amino Transf (AST/SGOT) 17 U/L (15-37) Alanine Aminotransferase (ALT/SGPT) 31 U/L (16-63) Alkaline Phosphatase 73 U/L (46-116) Total Protein 7.5 g/dL (6.4-8.2) Albumin 3.5 g/dL (3.4-5.0) Albumin/Globulin Ratio 0.9 (1.0-1.7) Procalcitonin 0.15 ng/mL (0.00-0.10) Magnesium Level 2.0 mg/dL (1.8-2.4) Glucose (Fingerstick) 113 mg/dL (70-99) 99 mg/dL (70-99) Laboratory Tests Test 04/04/20 20:08 04/05/20 04:34 04/05/20 08:29 04/05/20 10:45 White Blood Count 16.7 x10^3/uL (4.0-11.0) 12.8 x10^3/uL (4.0-11.0) Red Blood Count 4.45 x10^6/uL (4.30-5.70) 4.25 x10^6/uL (4.30-5.70) Hemoglobin 13.6 g/dL (13.0-17.5) 12.8 g/dL (13.0-17.5) Hematocrit 39.6 % (39.0-53.0) 38.5 % (39.0-53.0) Mean Corpuscular Volume 89 fL (79-100) 91 fL (79-100) Mean Corpuscular Hemoglobin 31 pg (25-35) 30 pg (25-35) Mean Corpuscular Hemoglobin Concent 34 g/dL (31-37) 33 g/dL (31-37) Red Cell Distribution Width 13.6 % (11.5-14.5) 13.6 % (11.5-14.5) Platelet Count 217 x10^3/uL (140-400) 203 x10^3/uL (140-400) Neutrophils (%) (Auto) 80 % (31-73) 75 % (31-73) Lymphocytes (%) (Auto) 13 % (24-48) 15 % (24-48) Monocytes (%) (Auto) 6 % (0-9) 8 % (0-9) Eosinophils (%) (Auto) 1 % (0-3) 2 % (0-3) Basophils (%) (Auto) 1 % (0-3) 0 % (0-3) Neutrophils # (Auto) 13.4 x10^3/uL (1.8-7.7) 9.6 x10^3/uL (1.8-7.7) Lymphocytes # (Auto) 2.1 x10^3/uL (1.0-4.8) 1.9 x10^3/uL (1.0-4.8) Monocytes # (Auto) 1.0 x10^3/uL (0.0-1.1) 1.0 x10^3/uL (0.0-1.1) Eosinophils # (Auto) 0.1 x10^3/uL (0.0-0.7) 0.2 x10^3/uL (0.0-0.7) Basophils # (Auto) 0.1 x10^3/uL (0.0-0.2) 0.0 x10^3/uL (0.0-0.2) Segmented Neutrophils % 79 % (35-66) Band Neutrophils % 2 % (0-9) Lymphocytes % 14 % (24-48) Monocytes % 5 % (0-10) Platelet Estimate Adequate (ADEQUATE) Prothrombin Time 13.6 SEC (11.7-14.0) Prothromb Time International Ratio 1.1 (0.8-1.1) Activated Partial Thromboplast Time 36 SEC (24-38) Sodium Level 138 mmol/L (136-145) 140 mmol/L (136-145) Potassium Level 3.3 mmol/L (3.5-5.1) 3.7 mmol/L (3.5-5.1) Chloride Level 102 mmol/L (98-107) 105 mmol/L (98-107) Carbon Dioxide Level 23 mmol/L (21-32) 25 mmol/L (21-32) Anion Gap 13 (6-14) 10 (6-14) Blood Urea Nitrogen 9 mg/dL (8-26) 10 mg/dL (8-26) Creatinine 1.0 mg/dL (0.7-1.3) 1.1 mg/dL (0.7-1.3) Estimated GFR (Cockcroft-Gault) 82.3 73.8 BUN/Creatinine Ratio 9 (6-20) Glucose Level 104 mg/dL (70-99) 105 mg/dL (70-99) Lactic Acid Level 0.7 mmol/L (0.4-2.0) Calcium Level 9.2 mg/dL (8.5-10.1) 8.5 mg/dL (8.5-10.1) Total Bilirubin 0.3 mg/dL (0.2-1.0) Aspartate Amino Transf (AST/SGOT) 17 U/L (15-37) Alanine Aminotransferase (ALT/SGPT) 31 U/L (16-63) Alkaline Phosphatase 73 U/L (46-116) Total Protein 7.5 g/dL (6.4-8.2) Albumin 3.5 g/dL (3.4-5.0) Albumin/Globulin Ratio 0.9 (1.0-1.7) Procalcitonin 0.15 ng/mL (0.00-0.10) Magnesium Level 2.0 mg/dL (1.8-2.4) Glucose (Fingerstick) 113 mg/dL (70-99) 99 mg/dL (70-99) Assessment/Plan Assessment/Plan axillary mass--US reviewed, no discrete abscess will check CT to further eval, continue abx will need covid testing if surgical intervention required continue abx FACUNDO MURGUIA MD 04/05/20 1305: CONSULT Assessment/Plan Assessment/Plan Patient seen and examined by me. Right axillary erythema tenderness reviewed ultrasound CT scan is complete has not been read as of yet but it looks like there is a large fluid collection within the axilla that would be amicable to drainage. Agree with Gustavo assessment and plan we will plan for incision and drainage of right axillary abscess once COVID status has been established SAEED KAHN APRN Apr 05, 2020 12:09 FACUNDO MURGUIA MD Apr 05, 2020 13:05
[2020-04-05] MEDS ORDERED: CONTRAST GIVEN. MC PRN (12:30)
[2020-04-05] MEDS ORDERED: IOHEXOL 300 MG/ML 100ML VIAL. IV ONE (12:30)
[2020-04-05] MEDS ORDERED: VANCOMYCIN 2 GM in IV NORMAL SALINE 500ML BAG 500 ML IV ONE (13:00)
--- NOTE | 2020-04-05 14:49 | RAD ---
EXAM: CT right shoulder with IV contrast INDICATION: Reason: axillary possible abscess/cellulitis/mass / Spl. Instructions: / History: TECHNIQUE: Helical CT of the right shoulder was performed with IV contrast and reviewed in multiplanar reformats. All CT scans performed at this facility utilize dose optimization techniques as appropriate to the exam, including the following: Automated exposure control and adjustment of the mA and/or KV according to patient size (this includes techniques or standardized protocols for targeted exams where dose is indication/reason for exam). IV CONTRAST: 25 mL Omnipaque 300 COMPARISON: Nonvascular right upper extremity ultrasound of 04/04/2020 FINDINGS: The bones show normal osseous alignment and mineralization with no fracture or aggressive osseous lesions. No significant degenerative changes are shown in the acromioclavicular and glenohumeral joints. The soft tissues show soft tissue stranding in the right axillary subcutaneous fat without an organized fluid collection or discrete soft tissue mass. No adenopathy in the right axilla is appreciated. No acute vascular pathology is seen either. No radiopaque foreign body. IMPRESSION: CT findings compatible with cellulitis in the right axilla. No organized fluid collection or discrete mass and no adenopathy noted. Electronically signed by: Kaleigh Nielson MD (04/05/2020 2:45 PM) [id number]
[2020-04-05 15:35] VITALS: BP 139/78
[2020-04-06] MEDS ORDERED: VANCOMYCIN 2 GM in IV NORMAL SALINE 500ML BAG 500 ML IV SCH (01:00)
[2020-04-06] MEDS ORDERED: MORPHINE SULFATE 2 MG/ML VIAL. IV PRN (07:00)
[2020-04-06] MEDS ORDERED: HYDROmorphone 2 MG/ML VIAL IV PRN (07:00)
[2020-04-06] MEDS ORDERED: IV RINGERS,LACTATED 1000ML 1,000 ML IV SCH (07:00)
[2020-04-06] MEDS ORDERED: ONDANSETRON PF 4 MG/2 ML VIAL. IV PRN (07:00)
[2020-04-06] MEDS ORDERED: PROCHLORPERAZINE 10 MG/2 ML VIAL. IV PRN (07:00)
[2020-04-06] MEDS ORDERED: fentaNYL PF VIAL 100 MCG/2 ML VIAL IV PRN ×2 (07:00)
== END 2020-04-05 19:05 | disposition left against medical advice (07) | DRG 872 ==
LOC: ER 18:52 → 4 NORTH 21:28
PROVIDERS: ADMIT Internal Medicine; ATTEND Internal Medicine
DX: A41.9 Sepsis, unspecified organism (principal); Z68.41 Body mass index [BMI] 40.0-44.9, adult; L02.411 Cutaneous abscess of right axilla; L03.111 Cellulitis of right axilla; E66.9 Obesity, unspecified; F17.210 Nicotine dependence, cigarettes, uncomplicated; I10 Essential (primary) hypertension; K21.9 Gastro-esophageal reflux disease without esophagitis; K57.90 Diverticulosis of intestine, part unspecified, without perforation or abscess without bleeding; L02.92 Furuncle, unspecified; Z20.828 Contact with and (suspected) exposure to other viral communicable diseases; E11.65 Type 2 diabetes mellitus with hyperglycemia; Z82.49 Family history of ischemic heart disease and other diseases of the circulatory system; Z71.3 Dietary counseling and surveillance; Z83.3 Family history of diabetes mellitus; Z83.49 Family history of other endocrine, nutritional and metabolic diseases; Z88.1 Allergy status to other antibiotic agents
CPT/HCPCS: 36415; 73201; 76881; 80048; 80053; 82962; 83605; 83735; 84145; 85007; 85025; 85610; 85730; 87040; 96365; 96368; 96375; J1815; J1885; J2270; J2543; J3370; J7030; J7040; Q9967; U0003; 99285-25; G0378